=== PATIENT | male | born 2000 | race Caucasian/White ===

== ENCOUNTER 2024-05-04 13:17 | Emergency (ER) | payer OTHER ==
[2024-05-04 14:35] LABS: Bilirubin Neg (Negative); Blood, Urine 250 (Negative); Clarity Bloody (Clear); Glucose, Urine (Dipstick) Normal (Negative); Ketone, Urine Negative (Negative); Leukocyte 100 (Negative); Nitrite Negative (Negative); Protein, Urine (Dipstick) 500 mg/dl (Neg-Trace); Specific Gravity, Urine 1.015 (1.005-1.030); Urobilinogen Normal mg/dL (Less than 2)
[2024-05-04] MEDS ORDERED: Ondansetron PF 4 MG/2 ML Vial ONE (14:39)
[2024-05-04] MEDS ORDERED: Morphine 4 MG/ML VIAL ONE (14:39)
[2024-05-04] MEDS ORDERED: Ketorolac Tromethamine 30 MG (1 mL) VIAL ONE (14:40)
[2024-05-04 14:42] LABS: Bacteria/HPF 2+ HPF (None Seen); CAUTI Indications for Culture Dysuria,urgency,freq; RBC/HPF Greater than 50 HPF (0-3); Squamous Epithelial 0-3 HPF (0-3); Transitional Epithelial 0-3 HPF (None Seen); WBC/HPF Greater than 50 HPF (0-3)
[2024-05-04 14:44] LABS: Urine Culture Reflex Yes Yes
[2024-05-04] MEDS ORDERED: cefTRIAXone (ROCEPHIN) 1 GM VIAL ONE (16:16)
== END 2024-05-04 16:55 | disposition home or self-care (01) ==
LOC: CSHERS 13:17
DX: N39.0 Urinary tract infection, site not specified (principal)
CPT/HCPCS: 74177; 81001; 87086; 96374; 96375; J0696; J1885; J2272; J2405